=== PATIENT | male | born 1950 | race African-American/Black ===

== ENCOUNTER 2019-06-25 10:51 | Inpatient (IN) | payer OTHER ==
[2019-06-25 11:37] VITALS: BMI 20.6
--- NOTE | 2019-06-25 13:25 | HP ---
COWS - Scale Resting Pulse: 0= IN 80 or Below Sweatin= Chills/Flushing Restless Observation: 1= Difficult to Sit Still Pupil Size: 1= Pupils >than Normal Bone or Joint Aches: 1= Mild Discomfort Runny Nose/ Eye Tearin= Nasal Congestion GI Upset > 30mins: 1= Stomach Cramp Tremor Observation: 1= Tremor [place], Not Seen Yawning Observation: 1= 1-2x During Session Anxiety or Irritability: 1=Feels Anxious/Irritable Goose Flesh Skin: 0=Smooth Skin (patient used earlier today so very early in withdrawals.) COWS Score: 9 CIWA Score Nausea/Vomitin-Mild Nausea/No Vomiting Muscle Tremors: 1-None Visible, but [place] Anxiety: 1-Mildly Anxious Agitation: 1-Slight > Activity Paroxysmal Sweats: 1-Minimal Palms Moist Orientation: 1-Uncertain about Date Tacttile Disturbances: 0-None Auditory Disturbances: 0-None Visual Disturbances: 0-None Headache: 0-None Present (drank 1 day ago.) CIWA-Ar Total Score: 6 - Admission Criteria OASAS Guidelines: Admission for Medically Managed Detox: Requires at least one of the followin. CIWA greater than 12 2. Seizures within the past 24 hours 3. Delirium tremens within the past 24 hours 4. Hallucinations within the past 24 hours 5. Acute intervention needed for co occurring medical disorder 6. Acute intervention needed for co occurring psychiatric disorder 7. Severe withdrawal that cannot be handled at a lower level of care (continued vomiting, continued diarrhea, abnormal vital signs) requiring intravenous medication and/or fluids 8. Admitting History and Physical - Admission Chief Complaint: "I want to stop drinking and stop doping. I am doing too much heroin and drinking." History of Present Illness: 68 year old black male with opioid dependence and alcohol dependence with withdrawals. He just relapsed 3 weeks ago and has been binging. He had a brother who was just released from senior care while trying to help him out. He is using 4 bags of heroin daily, last used yesterday. He is also drinking about 1 pint of vodka per day for the past 3 weeks. He is also smoking ciggarettes 2 ciggs per day for many years, but he can quit when he stops all the other substances. He has passed out from binging 1 day ago. He can't even remember this morning. He denies withdrawal seizures. PMH: HTN on meds norvasc 10 mg daily Psurg: None Patient is domiciled and lives with . - Advance Directives Advance Directives: No: Living Will, Health Care Proxy, DNR - Smoking History Smoking history: Current every day smoker Aproximately how many cigarettes per day: 1 - Alcohol/Substance Use Hx Alcohol Use: Yes Number of Drinks Daily: 10 History of Substance Use: reports: Heroin Date of Last Use: 06/24/19 - Social History Usual Living Arrangement: Yes: Alone Do you think of yourself as: Straight/Heterosexual ADL: Independent Occupation: unemployed History of Recent Travel: No Admission ROS [facility] Chief Complaint: "I want to stop drinking and stop doping. I am doing too much heroin and drinking." Allergies/Adverse Reactions: Allergies Allergy/AdvReac Type Severity Reaction Status Date / Time No Known Allergies Allergy Verified 06/25/19 11:22 History of Present Illness: 68 year old black male with opioid dependence and alcohol dependence with withdrawals. He just relapsed 3 weeks ago and has been binging. He had a brother who was just released from senior care while trying to help him out. He is using up to 10 bags of heroin daily, last used yesterday. He is also drinking about 1 pint of vodka per day for the past 3 weeks. He is also smoking ciggarettes 2 ciggs per day for many years, but he can quit when he stops all the other substances. He has passed out from binging 1 day ago. He can't even remember this morning. He denies withdrawal seizures. PMH: HTN on meds norvasc 10 mg daily Psurg: None Patient is domiciled and lives with . - Ebola screening Have you traveled outside of the country in the last 21 days: No Have you had contact with anyone from an Ebola affected area: No Have you been sick,other than usual withdrawal symptoms: No Do you have a fever: No - Review of Systems Constitutional: Chills, Diaphoresis, Unintentional Wgt. Loss EENT: reports: No Symptoms Reported Respiratory: reports: No Symptoms reported Cardiac: reports: No Symptoms Reported GI: reports: No Symptoms Reported : reports: No Symptoms Reported Musculoskeletal: reports: No Symptoms Reported Integumentary: reports: No Symptoms Reported Neuro: reports: No Symptoms reported Endocrine: reports: No Symptoms Reported Hematology: reports: No Symptoms Reported Psychiatric: reports: Agitated, Anxious Other Systems: Reviewed and Negative Patient History - Patient Medical History Hx Anemia: No Hx Asthma: No Hx Chronic Obstructive Pulmonary Disease (COPD): No Hx Cancer: No Hx Cardiac Disorders: No Hx Congestive Heart Failure: No Hx Hypertension: Yes Hx Hypercholesterolemia: No Hx Pacemaker: No HX Cerebrovascular Accident: No Hx Seizures: No Hx Dementia: No Hx Diabetes: No Hx Gastrointestinal Disorders: No Hx Liver Disease: No Hx Genitourinary Disorders: No Hx Sexually Transmitted Disorders: No Hx Renal Disease (ESRD): No Hx Thyroid Disease: No Hx Human Immunodeficiency Virus (HIV): Yes (right now on no meds) Hx Hepatitis C: Yes (cured and treated) Hx Depression: No - Patient Surgical History Past Surgical History: No - PPD History Previous Implant?: No Implanted On Prior [facility] Admission?: No PPD to be Administered?: Yes - Smoking Cessation Smoking history: Current every day smoker Aproximately how many cigarettes per day: 1 Hx Chewing Tobacco Use: No Initiated information on smoking cessation: Yes 'Breaking Loose' booklet given: 06/25/19 - Substances abused Heroin Substance route: Injection Frequency: Daily Amount used: 1 bundle Age of first use: 14 Date of last use: 06/25/19 Alcohol Substance route: Oral Frequency: Daily Amount used: [place] peach (1 pint) Age of first use: 14 Date of last use: 06/24/19 Admission Physical Exam [facility] - Vital Signs Vital Signs: Vital Signs - 24 hr 06/25/19 11:21 Temperature 97.1 F L Pulse Rate 75 Respiratory 20 Rate Blood Pressure 132/88 - Physical General Appearance: Yes: No Apparent Distress, Appropriately Dressed HEENTM: Yes: EOMI, Hearing grossly Normal, Normal ENT Inspection, Normocephalic , Normal Voice, ORTIZ, Pharynx Normal, Tm's normal Respiratory: Yes: Chest Non-Tender, Lungs Clear, Normal Breath Sounds, No Respiratory Distress, No Accessory Muscle Use Neck: Yes: No masses,lesions,Nodules, Supple, Trachea in good position Breast: Yes: Within Normal Limits Cardiology: Yes: Regular Rhythm, Regular Rate, S1, S2 Abdominal: Yes: Normal Bowel Sounds, Non Tender, Flat, Soft Genitourinary: Yes: Within Normal Limits Back: Yes: Normal Inspection Musculoskeletal: Yes: full range of Motion, Gait Steady Extremities: Yes: Normal Capillary Refill, Normal Inspection, Normal Range of Motion, Non-Tender 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, Fully Oriented, Alert, Motor Strength 5/5, Normal Mood/Affect, Normal Response Integumentary: Yes: Normal Color, Warm Lymphatic: Yes: Within Normal Limits - Diagnostic (1) Opioid dependence with withdrawal Current Visit: Yes Status: Acute (2) Alcohol dependence with withdrawal Current Visit: Yes Status: Acute (3) Hypertension Current Visit: Yes Status: Acute Screened but not Admitted - Documentation of Visit Screened but not Admitted: No Breathalyzer - Breathalyzer Breathalyzer: 0 Urine Drug Screen - Test Device Lot number: [id number] Expiration date: 02/07/21 - Control Is test valid?: Yes - Results Drug screen NEGATIVE: No Urine drug screen results: FEN-Fentanyl, MOP-Opiates, MTD-Methadone Inpatient Rehab Admission - Rehab Decision to Admit Inpatient rehab admission?: No
[2019-06-25] MEDS ORDERED: MENTHOL/PHENOL 1 EACH UD MM PRN (13:34)
[2019-06-25] MEDS ORDERED: MAGNESIUM HYDROX 2400MG/30ML ORAL SUSPENSION 30 ML CUP PO PRN (13:34)
[2019-06-25] MEDS ORDERED: MELATONIN 5 MG TABLETS PO PRN (13:34)
[2019-06-25] MEDS ORDERED: chlordiazePOXIDE HCL 25 MG CAPSULE PO PRN (13:34)
[2019-06-25] MEDS ORDERED: MAG HYDROX/AL HYDROX/SIMETH 30 ML UNIT-DOSE CUP PO PRN (13:34)
[2019-06-25] MEDS ORDERED: IBUPROFEN 400 MG TABLET (FP) PO PRN (13:34)
[2019-06-25] MEDS ORDERED: ACETAMINOPHEN 325 MG TABLET (FP) PO PRN ×2 (13:34)
[2019-06-25] MEDS ORDERED: BISMUTH SUBSALICYLATE 262 MG/15 ML BTL PO PRN (13:34)
[2019-06-25] MEDS ORDERED: hydrOXYzine PAMOATE 25 MG CAPSULE (FP) PO PRN (13:34)
[2019-06-25] MEDS ORDERED: MAGNESIUM CITRATE 300 ML BOTTLE PO PRN (13:34)
[2019-06-25] MEDS ORDERED: METHOCARBAMOL 500 MG TABLET PO PRN (13:34)
[2019-06-25] MEDS ORDERED: cloNIDine HCL 0.1 MG TABLET PO PRN (13:34)
[2019-06-25] MEDS ORDERED: METHADONE HCL 10 MG TABLET (FOR DETOX USE ONLY) PO ONE (14:20)
[2019-06-25 17:02] LABS: HEMATOCRIT 39.4 % (35.4-49); HEMOGLOBIN 13.2 GM/dL (11.7-16.9); MCH 31.1 pg (25.7-33.7); MCHC 33.6 g/dl (32.0-35.9); MEAN CELL VOLUME 92.5 fl (80-96); PLATELET COUNT 47 K/MM3 (134-434); RBC 4.26 M/mm3 (4.00-5.60); RDW 14.6 % (11.9-15.9)
[2019-06-25 17:10] LABS: BILIRUBIN,TOTAL 0.5 mg/dL (0.2-1); BLOOD UREA NITROGEN 18.3 mg/dL (7-18); CALCIUM 9.3 mg/dL (8.5-10.1); CREATININE 1.1 mg/dL (0.55-1.3); POTASSIUM 4.5 mmol/L (3.5-5.1); TOT PROT 9.4 g/dl (6.4-8.2)
[2019-06-25] MEDS: chlordiazePOXIDE HCL 25 MG CAPSULE PO SCH ×2 (17:20→22:09)
[2019-06-25] MEDS: THIAMINE HCL 100 MG TABLET (FP) PO SCH (22:09)
[2019-06-26] MEDS: chlordiazePOXIDE HCL 25 MG CAPSULE PO SCH ×4 (05:54→22:37)
[2019-06-26] MEDS ORDERED: METHADONE HCL 10 MG TABLET (FOR DETOX USE ONLY) ONE (09:53)
[2019-06-26] MEDS ORDERED: METHADONE HCL 5 MG TABLET (FOR DETOX USE ONLY) ONE (09:53)
[2019-06-26] MEDS ORDERED: METHADONE (DETOX) 20 MG, METHADONE (DETOX) 5 MG PO ONE (10:00)
[2019-06-26] MEDS: PRENATAL VITAMINS W/ FOLIC ACID TABLET (FP) PO SCH (10:34)
[2019-06-26] MEDS: amLODIPine BESYLATE 10 MG TABLET (FP) PO SCH (10:34)
[2019-06-26] MEDS ORDERED: cloNIDine HCL 0.1 MG TABLET PO PRN (11:27)
--- NOTE | 2019-06-26 11:32 | PN ---
[facility] CIWA - CIWA Score Nausea/Vomitin-Mild Nausea/No Vomiting Muscle Tremors: 3 Anxiety: 4-Mod. Anxious/Guarded Agitation: 2 Paroxysmal Sweats: 2 Orientation: 0-Oriented Tacttile Disturbances: 1-Very Mild Itch/Numbness Auditory Disturbances: 0-None Visual Disturbances: 0-None Headache: 0-None Present CIWA-Ar Total Score: 13 [facility] COWS - Scale Resting Pulse: 0= [place] 80 or Below Sweatin= Chills/Flushing Restless Observation: 0= Sits Still Pupil Size: 0= Normal to Room Light Bone or Joint Aches: 1= Mild Discomfort Runny Nose/ Eye Tearin= Nasal Congestion GI Upset > 30mins: 2= Nausea/Diarrhea (no diarrhea) Tremor Observation of Outstretched Hands: 2= Slight Tremor Visible Yawning Observation: 1= 1-2x During Session Anxiety or Irritability: 2=Irritable/Anxious Goose Flesh Skin: 3=Piloe[place] COWS Score: 13 S Progress Note (SOAP) Subjective: ambulating on hallway social with peers experiencing withdrawal more than yesterday but librium and methadone are fine for him ate breakfast prefers stay in day room 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 Objective: 06/26/19 11:41 Vital Signs Temperature 97.6 F 06/26/19 09:20 Pulse Rate 79 06/26/19 09:20 Respiratory Rate 18 06/26/19 09:20 Blood Pressure 144/96 06/26/19 09:20 O2 Sat by Pulse Oximetry (%) Laboratory Last Values WBC 4.0 K/mm3 (4.0-10.0) 06/25/19 13:50 RBC 4.26 M/mm3 (4.00-5.60) 06/25/19 13:50 Hgb 13.2 GM/dL (11.7-16.9) 06/25/19 13:50 Hct 39.4 % (35.4-49) 06/25/19 13:50 MCV 92.5 fl (80-96) 06/25/19 13:50 MCH 31.1 pg (25.7-33.7) 06/25/19 13:50 MCHC 33.6 g/dl (32.0-35.9) 06/25/19 13:50 RDW 14.6 % (11.9-15.9) 06/25/19 13:50 Plt Count 47 K/MM3 (134-434) L 06/25/19 13:50 MPV 11.0 fl (7.5-11.1) 06/25/19 13:50 Sodium 139 mmol/L (136-145) 06/25/19 13:50 Potassium 4.5 mmol/L (3.5-5.1) 06/25/19 13:50 Chloride 108 mmol/L (98-107) H 06/25/19 13:50 Carbon Dioxide 24 mmol/L (21-32) 06/25/19 13:50 Anion Gap 7 MMOL/L (8-16) L 06/25/19 13:50 BUN 18.3 mg/dL (7-18) H 06/25/19 13:50 Creatinine 1.1 mg/dL (0.55-1.3) 06/25/19 13:50 Est GFR (CKD-EPI)AfAm 79.52 06/25/19 13:50 Est GFR (CKD-EPI)NonAf 68.61 06/25/19 13:50 Random Glucose 96 mg/dL (74-106) 06/25/19 13:50 Calcium 9.3 mg/dL (8.5-10.1) 06/25/19 13:50 Total Bilirubin 0.5 mg/dL (0.2-1) 06/25/19 13:50 AST 45 U/L (15-37) H 06/25/19 13:50 ALT 27 U/L (13-61) 06/25/19 13:50 Alkaline Phosphatase 199 U/L (45-117) H 06/25/19 13:50 Total Protein 9.4 g/dl (6.4-8.2) H 06/25/19 13:50 Albumin 4.0 g/dl (3.4-5.0) 06/25/19 13:50 lab noted Assessment: 06/26/19 11:41 alcohol and opiate withdrawal sx Plan: continue librium and methadone detox regimen
[2019-06-26] MEDS: THIAMINE HCL 100 MG TABLET (FP) PO SCH (22:37)
[2019-06-27] MEDS: chlordiazePOXIDE HCL 25 MG CAPSULE PO SCH ×4 (07:05→22:31)
[2019-06-27] MEDS ORDERED: METHADONE HCL 10 MG TABLET (FOR DETOX USE ONLY) PO ONE (10:00)
[2019-06-27] MEDS: PRENATAL VITAMINS W/ FOLIC ACID TABLET (FP) PO SCH (10:28)
[2019-06-27] MEDS: amLODIPine BESYLATE 10 MG TABLET (FP) PO SCH (10:28)
--- NOTE | 2019-06-27 12:55 | PN ---
[facility] CIWA - CIWA Score Nausea/Vomitin-No Nausea/No Vomiting Muscle Tremors: 2 Anxiety: 3 Agitation: 4-Moderately Restless Paroxysmal Sweats: 2 Orientation: 0-Oriented Tacttile Disturbances: 1-Very Mild Itch/Numbness Auditory Disturbances: 1-Very Mild Visual Disturbances: 0-None Headache: 1-Very Mild CIWA-Ar Total Score: 14 S COWS - Scale Resting Pulse: 1= [place] 81-100 Sweatin= Chills/Flushing Restless Observation: 1= Difficult to Sit Still Pupil Size: 0= Normal to Room Light Bone or Joint Aches: 1= Mild Discomfort Runny Nose/ Eye Tearin= Runny Nose/Eyes GI Upset > 30mins: 1= Stomach Cramp Tremor Observation of Outstretched Hands: 1= Tremor [place], Not Seen Yawning Observation: 2= >3x During Session Anxiety or Irritability: 2=Irritable/Anxious Goose Flesh Skin: 0=Smooth Skin COWS Score: 12 S Progress Note (SOAP) Subjective: c/o of chills, sweats, body aches, interrupted sleep Objective: 06/27/19 12:54 Vital Signs Temperature 98.7 F 06/27/19 09:29 Pulse Rate 90 06/27/19 09:29 Respiratory Rate 18 06/27/19 09:29 Blood Pressure 146/104 H 06/27/19 09:29 O2 Sat by Pulse Oximetry (%) Laboratory Last Values WBC 4.0 K/mm3 (4.0-10.0) 06/25/19 13:50 RBC 4.26 M/mm3 (4.00-5.60) 06/25/19 13:50 Hgb 13.2 GM/dL (11.7-16.9) 06/25/19 13:50 Hct 39.4 % (35.4-49) 06/25/19 13:50 MCV 92.5 fl (80-96) 06/25/19 13:50 MCH 31.1 pg (25.7-33.7) 06/25/19 13:50 MCHC 33.6 g/dl (32.0-35.9) 06/25/19 13:50 RDW 14.6 % (11.9-15.9) 06/25/19 13:50 Plt Count 47 K/MM3 (134-434) L 06/25/19 13:50 MPV 11.0 fl (7.5-11.1) 06/25/19 13:50 Sodium 139 mmol/L (136-145) 06/25/19 13:50 Potassium 4.5 mmol/L (3.5-5.1) 06/25/19 13:50 Chloride 108 mmol/L (98-107) H 06/25/19 13:50 Carbon Dioxide 24 mmol/L (21-32) 06/25/19 13:50 Anion Gap 7 MMOL/L (8-16) L 06/25/19 13:50 BUN 18.3 mg/dL (7-18) H 06/25/19 13:50 Creatinine 1.1 mg/dL (0.55-1.3) 06/25/19 13:50 Est GFR (CKD-EPI)AfAm 79.52 06/25/19 13:50 Est GFR (CKD-EPI)NonAf 68.61 06/25/19 13:50 Random Glucose 96 mg/dL (74-106) 06/25/19 13:50 Calcium 9.3 mg/dL (8.5-10.1) 06/25/19 13:50 Total Bilirubin 0.5 mg/dL (0.2-1) 06/25/19 13:50 AST 45 U/L (15-37) H 06/25/19 13:50 ALT 27 U/L (13-61) 06/25/19 13:50 Alkaline Phosphatase 199 U/L (45-117) H 06/25/19 13:50 Total Protein 9.4 g/dl (6.4-8.2) H 06/25/19 13:50 Albumin 4.0 g/dl (3.4-5.0) 06/25/19 13:50 RPR Titer Nonreactive (NONREACTIVE) 06/25/19 13:55 labs reviewed low alk phos and low platets r/t chronic alcohol use, repat alk phos and platelets Assessment: 06/27/19 13:28 Aox3, no acute distress, agitates EENT WNL full ROM ambulating in the unit withdrawal sx Plan: elevated alk phos and thrombocytopenia d/t alcohol use, repeat labs, patient to follow up with PCP upon discharge increase fluids continue to monitor continue detox
[2019-06-27] MEDS: THIAMINE HCL 100 MG TABLET (FP) PO SCH (22:31)
[2019-06-28] MEDS ORDERED: chlordiazePOXIDE HCL 10 MG CAPSULE PO PRN
[2019-06-28] MEDS: chlordiazePOXIDE HCL 10 MG CAPSULE PO SCH ×4 (06:08→22:47)
[2019-06-28] MEDS ORDERED: METHADONE HCL 5 MG TABLET (FOR DETOX USE ONLY) ONE (09:27)
[2019-06-28] MEDS ORDERED: METHADONE HCL 10 MG TABLET (FOR DETOX USE ONLY) ONE (09:27)
[2019-06-28] MEDS ORDERED: METHADONE (DETOX) 10 MG, METHADONE (DETOX) 5 MG PO ONE (10:00)
[2019-06-28] MEDS: PRENATAL VITAMINS W/ FOLIC ACID TABLET (FP) PO SCH (10:31)
[2019-06-28] MEDS: amLODIPine BESYLATE 10 MG TABLET (FP) PO SCH (10:31)
--- NOTE | 2019-06-28 13:13 | PN ---
S CIWA - CIWA Score Nausea/Vomitin-Mild Nausea/No Vomiting Muscle Tremors: 3 Anxiety: 2 Agitation: 3 Paroxysmal Sweats: 3 Orientation: 1-Uncertain about Date Tacttile Disturbances: 0-None Auditory Disturbances: 0-None Visual Disturbances: 0-None Headache: 1-Very Mild CIWA-Ar Total Score: 14 S COWS - Scale Resting Pulse: 1= [place] 81-100 Sweatin= No chills or Flushing Restless Observation: 0= Sits Still Pupil Size: 0= Normal to Room Light Bone or Joint Aches: 1= Mild Discomfort Runny Nose/ Eye Tearin= Nasal Congestion GI Upset > 30mins: 1= Stomach Cramp Tremor Observation of Outstretched Hands: 1= Tremor [place], Not Seen Yawning Observation: 0= None Anxiety or Irritability: 1=Feels Anxious/Irritable Goose Flesh Skin: 0=Smooth Skin COWS Score: 6 S Progress Note (SOAP) Objective: 06/28/19 13:11 Pt admitted for alcohol and heroin detox. O: Vital Signs - 24 hr 06/27/19 06/27/19 06/27/19 13:49 17:51 21:47 Temperature 98.8 F 97.6 F 98.5 F Pulse Rate 68 65 73 Respiratory 18 18 18 Rate Blood Pressure 137/82 118/85 138/89 06/28/19 06/28/19 06/28/19 00:30 03:30 06:09 Temperature 98.6 F Pulse Rate 65 Respiratory 18 18 18 Rate Blood Pressure 131/79 06/28/19 09:35 Temperature 97.9 F Pulse Rate 76 Respiratory 18 Rate Blood Pressure 140/89 Laboratory Tests 06/25/19 06/25/19 06/25/19 13:50 13:50 13:55 WBC 4.0 RBC 4.26 Hgb 13.2 Hct 39.4 MCV 92.5 MCH 31.1 MCHC 33.6 RDW 14.6 Plt Count 47 L MPV 11.0 Sodium 139 Potassium 4.5 Chloride 108 H Carbon Dioxide 24 Anion Gap 7 L BUN 18.3 H Creatinine 1.1 Est GFR (CKD-EPI)AfAm 79.52 Est GFR (CKD-EPI)NonAf 68.61 Random Glucose 96 Calcium 9.3 Total Bilirubin 0.5 AST 45 H ALT 27 Alkaline Phosphatase 199 H Total Protein 9.4 H Albumin 4.0 RPR Titer Nonreactive 06/27/19 06/27/19 13:40 13:40 WBC RBC Hgb Hct MCV MCH MCHC RDW Plt Count 40 L MPV Sodium Potassium Chloride Carbon Dioxide Anion Gap BUN Creatinine Est GFR (CKD-EPI)AfAm Est GFR (CKD-EPI)NonAf Random Glucose Calcium Total Bilirubin AST ALT Alkaline Phosphatase 182 H Total Protein Albumin RPR Titer low platelet count~40 alkPo4-incrased to 180 a/p: continue alcohol and heroin detox no evidence of bleeding or other effects due to low plts
[2019-06-28] MEDS: THIAMINE HCL 100 MG TABLET (FP) PO SCH (22:47)
[2019-06-29] MEDS: chlordiazePOXIDE HCL 10 MG CAPSULE PO SCH ×2 (05:58→18:35)
[2019-06-29] MEDS ORDERED: METHADONE HCL 10 MG TABLET (FOR DETOX USE ONLY) PO ONE (10:00)
[2019-06-29] MEDS: PRENATAL VITAMINS W/ FOLIC ACID TABLET (FP) PO SCH (10:44)
[2019-06-29] MEDS: amLODIPine BESYLATE 10 MG TABLET (FP) PO SCH (10:44)
--- NOTE | 2019-06-29 12:45 | PN ---
[facility] CIWA - CIWA Score Nausea/Vomitin-Mild Nausea/No Vomiting Muscle Tremors: 3 Anxiety: 2 Agitation: 0-Normal Activity Paroxysmal Sweats: 1-Minimal Palms Moist Orientation: 0-Oriented Tacttile Disturbances: 1-Very Mild Itch/Numbness Auditory Disturbances: 1-Very Mild Visual Disturbances: 0-None Headache: 0-None Present CIWA-Ar Total Score: 9 [facility] COWS - Scale Resting Pulse: 0= [place] 80 or Below Sweatin= Chills/Flushing Restless Observation: 0= Sits Still Pupil Size: 0= Normal to Room Light Bone or Joint Aches: 0= None Runny Nose/ Eye Tearin= None GI Upset > 30mins: 2= Nausea/Diarrhea Tremor Observation of Outstretched Hands: 1= Tremor [place], Not Seen Yawning Observation: 0= None Anxiety or Irritability: 0= None Goose Flesh Skin: 0=Smooth Skin COWS Score: 4 S Progress Note (SOAP) Subjective: doing well with librium and methadone detox regimen sleep better at night 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, 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 Objective: 06/29/19 12:47 Laboratory Last Values WBC 4.0 K/mm3 (4.0-10.0) 06/25/19 13:50 RBC 4.26 M/mm3 (4.00-5.60) 06/25/19 13:50 Hgb 13.2 GM/dL (11.7-16.9) 06/25/19 13:50 Hct 39.4 % (35.4-49) 06/25/19 13:50 MCV 92.5 fl (80-96) 06/25/19 13:50 MCH 31.1 pg (25.7-33.7) 06/25/19 13:50 MCHC 33.6 g/dl (32.0-35.9) 06/25/19 13:50 RDW 14.6 % (11.9-15.9) 06/25/19 13:50 Plt Count 40 K/MM3 (134-434) L 06/27/19 13:40 MPV 11.0 fl (7.5-11.1) 06/25/19 13:50 Sodium 139 mmol/L (136-145) 06/25/19 13:50 Potassium 4.5 mmol/L (3.5-5.1) 06/25/19 13:50 Chloride 108 mmol/L (98-107) H 06/25/19 13:50 Carbon Dioxide 24 mmol/L (21-32) 06/25/19 13:50 Anion Gap 7 MMOL/L (8-16) L 06/25/19 13:50 BUN 18.3 mg/dL (7-18) H 06/25/19 13:50 Creatinine 1.1 mg/dL (0.55-1.3) 06/25/19 13:50 Est GFR (CKD-EPI)AfAm 79.52 06/25/19 13:50 Est GFR (CKD-EPI)NonAf 68.61 06/25/19 13:50 Random Glucose 96 mg/dL (74-106) 06/25/19 13:50 Calcium 9.3 mg/dL (8.5-10.1) 06/25/19 13:50 Total Bilirubin 0.5 mg/dL (0.2-1) 06/25/19 13:50 AST 45 U/L (15-37) H 06/25/19 13:50 ALT 27 U/L (13-61) 06/25/19 13:50 Alkaline Phosphatase 182 U/L (45-117) H 06/27/19 13:40 Total Protein 9.4 g/dl (6.4-8.2) H 06/25/19 13:50 Albumin 4.0 g/dl (3.4-5.0) 06/25/19 13:50 RPR Titer Nonreactive (NONREACTIVE) 06/25/19 13:55 Vital Signs Temperature 97.5 F L 06/29/19 09:22 Pulse Rate 79 06/29/19 09:22 Respiratory Rate 18 06/29/19 09:22 Blood Pressure 126/89 06/29/19 09:22 O2 Sat by Pulse Oximetry (%) lab noted Assessment: 06/29/19 12:48 alcohol and opiate withdrawal sx Plan: continue librium and methadone detox regimen
[2019-06-29] MEDS: THIAMINE HCL 100 MG TABLET (FP) PO SCH (23:29)
[2019-06-30] MEDS ORDERED: chlordiazePOXIDE HCL 10 MG CAPSULE PO ONE (05:00)
[2019-06-30] MEDS ORDERED: METHADONE HCL 5 MG TABLET (FOR DETOX USE ONLY) PO ONE (06:00)
[2019-06-30 06:54] VITALS: BP 109/64; PULSE 76; TEMP 97.7
[2019-06-30] MEDS: amLODIPine BESYLATE 10 MG TABLET (FP) PO SCH (10:50)
[2019-06-30] MEDS: PRENATAL VITAMINS W/ FOLIC ACID TABLET (FP) PO SCH (10:51)
--- NOTE | 2019-06-30 12:56 | DS ---
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 but brief ciwa and cows - Physical Exam Results Vital Signs: Vital Signs Temperature 97.7 F 06/30/19 06:54 Pulse Rate 76 06/30/19 06:54 Respiratory Rate 18 06/30/19 06:54 Blood Pressure 109/64 06/30/19 06:54 O2 Sat by Pulse Oximetry (%) Pertinent Admission Physical Exam Findings: alcohol and opiate withdrawal sx Laboratory Last Values WBC 4.0 K/mm3 (4.0-10.0) 06/25/19 13:50 RBC 4.26 M/mm3 (4.00-5.60) 06/25/19 13:50 Hgb 13.2 GM/dL (11.7-16.9) 06/25/19 13:50 Hct 39.4 % (35.4-49) 06/25/19 13:50 MCV 92.5 fl (80-96) 06/25/19 13:50 MCH 31.1 pg (25.7-33.7) 06/25/19 13:50 MCHC 33.6 g/dl (32.0-35.9) 06/25/19 13:50 RDW 14.6 % (11.9-15.9) 06/25/19 13:50 Plt Count 40 K/MM3 (134-434) L 06/27/19 13:40 MPV 11.0 fl (7.5-11.1) 06/25/19 13:50 Sodium 139 mmol/L (136-145) 06/25/19 13:50 Potassium 4.5 mmol/L (3.5-5.1) 06/25/19 13:50 Chloride 108 mmol/L (98-107) H 06/25/19 13:50 Carbon Dioxide 24 mmol/L (21-32) 06/25/19 13:50 Anion Gap 7 MMOL/L (8-16) L 06/25/19 13:50 BUN 18.3 mg/dL (7-18) H 06/25/19 13:50 Creatinine 1.1 mg/dL (0.55-1.3) 06/25/19 13:50 Est GFR (CKD-EPI)AfAm 79.52 06/25/19 13:50 Est GFR (CKD-EPI)NonAf 68.61 06/25/19 13:50 Random Glucose 96 mg/dL (74-106) 06/25/19 13:50 Calcium 9.3 mg/dL (8.5-10.1) 06/25/19 13:50 Total Bilirubin 0.5 mg/dL (0.2-1) 06/25/19 13:50 AST 45 U/L (15-37) H 06/25/19 13:50 ALT 27 U/L (13-61) 06/25/19 13:50 Alkaline Phosphatase 182 U/L (45-117) H 06/27/19 13:40 Total Protein 9.4 g/dl (6.4-8.2) H 06/25/19 13:50 Albumin 4.0 g/dl (3.4-5.0) 06/25/19 13:50 RPR Titer Nonreactive (NONREACTIVE) 06/25/19 13:55 lab noted - Treatment Hospital Course: Detox Protocol Followed, Detoxed Safely, Responded well, Discharged Condition Good, Rehab Referral Accepted Patient has Accepted a Rehab Referral to: [facility] - Medication Discharge Medications: Ambulatory Orders Amlodipine Besylate 10 mg PO DAILY 06/25/19 Naloxone HCl [Narcan] 4 mg NS ASDIR PRN #1 spray 06/26/19 - Diagnosis (1) Alcohol dependence with withdrawal Current Visit: Yes Status: Acute Qualifiers: Complication of substance-induced condition: uncomplicated Qualified Code(s ): F10.230 - Alcohol dependence with withdrawal, uncomplicated (2) Hypertension Current Visit: Yes Status: Chronic Qualifiers: Hypertension type: essential hypertension Qualified Code(s): I10 - Essential (primary) hypertension (3) Opioid dependence with withdrawal Current Visit: Yes Status: Acute - AMA Did Patient Leave Against Medical Advice: No CIWA Score - CIWA Score Nausea/Vomitin-No Nausea/No Vomiting Muscle Tremors: 2 Anxiety: 1-Mildly Anxious Agitation: 0-Normal Activity Paroxysmal Sweats: No Perspiration Orientation: 0-Oriented Tacttile Disturbances: 0-None Auditory Disturbances: 0-None Visual Disturbances: 0-None Headache: 0-None Present CIWA-Ar Total Score: 3 COWS (PN) - Opiate Withdrawal Resting Pulse: 0= [place] 80 or Below Sweatin= Chills/Flushing Restless Observation: 0= Sits Still Pupil Size: 0= Normal to Room Light Bone or Joint Aches: 0= None Runny Nose/ Eye Tearin= None GI Upset > 30mins: 0= None Tremor Observation of Outstretched Hands: 0= None Yawning Observation: 0= None Anxiety or Irritability: 1=Feels Anxious/Irritable Goose Flesh Skin: 0=Smooth Skin COWS Score: 2
== END 2019-06-30 08:36 | disposition home or self-care (01) | DRG 897 ==
LOC: YASAS 10:51 → Y3N 13:59
PROVIDERS: ADMIT Allergy & Immunology; ATTEND Allergy & Immunology
PROC: HZ2ZZZZ Detoxification Services for Substance Abuse Treatment (ICD-10-PCS; principal; 2019-06-25)
DX: F10.230 Alcohol dependence with withdrawal, uncomplicated (principal); F11.23 Opioid dependence with withdrawal; Z21 Asymptomatic human immunodeficiency virus [HIV] infection status; F17.210 Nicotine dependence, cigarettes, uncomplicated; I10 Essential (primary) hypertension; Z86.19 Personal history of other infectious and parasitic diseases; Z88.6 Allergy status to analgesic agent
CPT/HCPCS: 36415; 80053; 84075; 85027; 85032; 86593